=== PATIENT | female | born 1945 | race Caucasian/White ===

== ENCOUNTER 2020-12-24 13:22 | Emergency (ER) | payer MEDICARE, OTHER ==
[~2020-12-24] VITALS: Ht 157.5 cm; Wt 75.7 kg
[2020-12-24 14:00] VITALS: BP 142/86
[2020-12-24] MEDS ORDERED: ONDANSETRON PF 4 MG/2 ML VIAL. IVP ONE (14:15)
--- NOTE | 2020-12-24 14:47 | RAD ---
EXAM: Chest, 2 views. HISTORY: Cough. Shortness of breath. COMPARISON: None. FINDINGS: 2 views of the chest are obtained. There is no infiltrate, pleural effusion or pneumothorax . There are chronic appearing interstitial changes. The heart is normal in size. There are surgical c lips overlying the left thoracic inlet. IMPRESSION: No acute pulmonary finding. Chronic appearing interstitial changes. Electronically signed by: Mamie Yang MD (12/24/2020 2:45 PM) [id number]
[2020-12-24 14:54] LABS: BASO % 0 % (0-3); EOS # 0.1 x10^3/uL (0.0-0.7); EOS % 1 % (0-3); HEMATOCRIT 41.6 % (36.0-47.0); LYMPH # 0.5 x10^3/uL (1.0-4.8); LYMPH % 5 % (24-48); MEAN CORPUSCULAR HEMOGLOBIN 30 pg (25-35); MEAN CORPUSCULAR HGB CONC 34 g/dL (31-37); MEAN CORPUSCULAR VOLUME 88 fL (79-100); MONO # 0.6 x10^3/uL (0.0-1.1); MONO % 6 % (0-9); NEUT # 8.7 x10^3uL (1.8-7.7); NEUT % 88 % (31-73); PLATELET COUNT 242 x10^3/uL (140-400); RED BLOOD COUNT 4.71 x10^6/uL (3.50-5.40); RED CELL DISTRIBUTION WIDTH 13.6 % (11.5-14.5); WHITE BLOOD COUNT 9.9 x10^3/uL (4.0-11.0)
[2020-12-24 15:00] LABS: GFR 54.3; POTASSIUM 3.7 mmol/L (3.5-5.1)
[2020-12-24 15:06] LABS: ALBUMIN 3.7 g/dL (3.4-5.0); ALBUMIN/GLOBULIN RATIO 1.1 (1.0-1.7); TOTAL BILIRUBIN 0.7 mg/dL (0.2-1.0); TOTAL PROTEIN 7.2 g/dL (6.4-8.2)
--- NOTE | 2020-12-24 16:08 | EKG ---
[address] [address] Test Date: 2020-12-24 Test Time: 15:24:43 Pat Name: ARMAAN LA Department: Room: Gender: F Assembly Associate: ANJEL : 1945 Requested By: JUAN TATE Order Number: [id number] Reading MD: Measurements Intervals [place] Rate: 95 P: 1 NE: 182 QRS: 32 QRSD: 88 T: 43 QT: 350 QTc: 443 Interpretive Statements SINUS RHYTHM LOW LIMB LEAD VOLTAGE NO SPECIFIC ECG ABNORMALITIES RI6.02 No previous ECG available for comparison
[2020-12-24 16:16] LABS: BILIRUBIN,URINE NEG (NEG); CLARITY,URINE CLEAR; COLOR,URINE YELLOW; GLUCOSE,URINE NEG (NEG); NITRITE,URINE NEG (NEG); UROBILINOGEN,URINE 0.2 mg/dL (0.2 mg/dL)
[2020-12-24 16:20] LABS: BACTERIA,URINE FEW /HPF (0-FEW); SQUAMOUS EPITHELIAL CELL,UR OCC /LPF
[2020-12-24] MEDS ORDERED: ACETAMINOPHEN 325 MG TABLET PO ONE (16:30)
[2020-12-24] MEDS ORDERED: CEPH500C PO (17:36)
--- NOTE | 2020-12-24 17:37 | PHYS DOC ---
Past History Past Medical History: Hypothyroid (JUAN TATE APRN) Past Surgical History: No Surgical History (JUAN TATE APRN) Alcohol Use: None (JUAN TATE APRN) Adult General Chief Complaint Chief Complaint: FEMALE UROGENTIAL PROBLEMS HPI HPI Patient is a 75-year-old female presents to the emergency department complaining of burning and pressure with urination has been going on for the past week. Patient states she was seen at her NURSING UNIT MANAGER's office for a pessary change in which she uses for a prolapsed bladder was told she had a urinary tract infection and was started on a 7-day regimen of Macrobid. Patient states she finished yesterday, feels as if her urinary tract infection is not gone, patient is states she feels a little nauseated today. Patient also states that when she takes a deep breath it makes her cough once. Patient states she noticed she had a fever of 101.3 at home, states she does not like to take any medications for fevers as she likes for her body to take care of itself. Patient reports she takes Synthroid for thyroid problems. Patient reports her primary care physician is Dr. Whittaker. Patient denies any chest pains, shortness of breath, vomiting, or diarrhea. Patient denies any other physical complaints or physical concerns. (JUAN TATE APRN) Review of Systems Review of Systems 14 body systems of review of systems have been reviewed. See HPI for pertinent positives and negative responses, otherwise all other systems are negative, nonpertinent or noncontributory. (JUAN TATE APRN) Current Medications Current Medications Current Medications Medications (Trade) Dose Ordered Sig/Marco Antonio Start Time Stop Time Status Last Admin Dose Admin Acetaminophen (Tylenol) 650 mg 1X ONCE 12/24/20 16:30 12/24/20 16:45 DC 12/24/20 16:30 650 MG Ondansetron HCl (Zofran) 4 mg 1X ONCE 12/24/20 14:15 12/24/20 14:31 DC 12/24/20 14:37 4 MG (JUAN TATE APRN) Allergies Allergies Allergies Coded Allergies Type Severity Reaction Last Updated Verified No Known Drug Allergies 12/24/20 No (JUAN TATE APRN) Physical Exam Physical Exam Constitutional: Well developed, well nourished, no acute distress, non-toxic appearance. 75-year-old female no apparent distress. HENT: Normocephalic, atraumatic, bilateral external ears normal, oropharynx moist, no oral exudates, nose normal. Eyes: PERRLA, EOMI, conjunctiva normal, no discharge. Neck: Normal range of motion, no tenderness, supple, no stridor. Cardiovascular:Heart rate regular rhythm, no murmur, heart sounds S1-S2 to auscultation. Lungs & Thorax: Bilateral breath sounds clear to auscultation, no adventitious lung sounds appreciated. Abdomen: Bowel sounds normal, soft, no tenderness, no masses, no pulsatile masses. Skin: Warm, dry, no erythema, no rash. Back: No tenderness, no CVA tenderness. Extremities: No tenderness, no cyanosis, no clubbing, ROM intact, no edema. Neurologic: Alert and oriented X 3, normal motor function, normal sensory funct ion, no focal deficits noted. Psychologic: Affect normal, judgement normal, mood normal. (JUAN TATE APRN) Current Patient Data Vital Signs Vital Signs Date Time Temp Pulse Resp B/P (MAP) Pulse Ox O2 Delivery O2 Flow Rate FiO2 12/24/20 16:00 100.0 12/24/20 14:00 76 22 142/86 (104) 94 Room Air Lab Results Laboratory Tests Test 12/24/20 14:21 12/24/20 15:37 White Blood Count 9.9 x10^3/uL (4.0-11.0) Red Blood Count 4.71 x10^6/uL (3.50-5.40) Hemoglobin 14.0 g/dL (12.0-15.5) Hematocrit 41.6 % (36.0-47.0) Mean Corpuscular Volume 88 fL (79-100) Mean Corpuscular Hemoglobin 30 pg (25-35) Mean Corpuscular Hemoglobin Concent 34 g/dL (31-37) Red Cell Distribution Width 13.6 % (11.5-14.5) Platelet Count 242 x10^3/uL (140-400) Neutrophils (%) (Auto) 88 % (31-73) H Lymphocytes (%) (Auto) 5 % (24-48) L Monocytes (%) (Auto) 6 % (0-9) Eosinophils (%) (Auto) 1 % (0-3) Basophils (%) (Auto) 0 % (0-3) Neutrophils # (Auto) 8.7 x10^3uL (1.8-7.7) H Lymphocytes # (Auto) 0.5 x10^3/uL (1.0-4.8) L Monocytes # (Auto) 0.6 x10^3/uL (0.0-1.1) Eosinophils # (Auto) 0.1 x10^3/uL (0.0-0.7) Basophils # (Auto) 0.0 x10^3/uL (0.0-0.2) Sodium Level 141 mmol/L (136-145) Potassium Level 3.7 mmol/L (3.5-5.1) Chloride Level 103 mmol/L (98-107) Carbon Dioxide Level 28 mmol/L (21-32) Anion Gap 10 (6-14) Blood Urea Nitrogen 17 mg/dL (7-20) Creatinine 1.0 mg/dL (0.6-1.0) Estimated GFR (Cockcroft-Gault) 54.3 BUN/Creatinine Ratio 17 (6-20) Glucose Level 139 mg/dL (70-99) H Calcium Level 9.0 mg/dL (8.5-10.1) Total Bilirubin 0.7 mg/dL (0.2-1.0) Aspartate Amino Transferase (AST) 21 U/L (15-37) Alanine Aminotransferase (ALT) 31 U/L (14-59) Alkaline Phosphatase 107 U/L (46-116) Troponin I Quantitative < 0.017 ng/mL (0-0.055) Total Protein 7.2 g/dL (6.4-8.2) Albumin 3.7 g/dL (3.4-5.0) Albumin/Globulin Ratio 1.1 (1.0-1.7) Urine Collection Type Unknown Urine Color Yellow Urine Clarity Clear Urine pH 6.0 Urine Specific [place] 1.025 Urine Protein Neg (NEG-TRACE) Urine Glucose (UA) Neg mg/dL (NEG) Urine Ketones (Stick) Neg mg/dL (NEG) Urine Blood Mod (NEG) Urine Nitrite Neg (NEG) Urine Bilirubin Neg (NEG) Urine Urobilinogen Dipstick 0.2 mg/dL (0.2 mg/dL) Urine Leukocyte Esterase Small (NEG) Urine RBC 3-5 /HPF (0-2) Urine WBC 1-4 /HPF (0-4) Urine Squamous Epithelial Cells Occ /LPF Urine Bacteria Few /HPF (0-FEW) Urine Mucus Slight /LPF (JUAN TATE APRN) EKG EKG EKG performed at 1524 by house respiratory therapy staff shows a normal sinus rhythm without ectopy heart rate 95 bpm, [place] interval 0.182, QTc interval 0.443, no acute STEMI, no ACS, no acute ischemia appreciated, EKG interpreted by ED attending physician Dr. Henderson. (JUAN TATE APRN) Radiology/Procedures Radiology/Procedures PATIENT: ARMAAN LA ACCOUNT: [id number] : 1945 LOCATION: ER AGE: 75 SEX: F EXAM STATUS: REG ER ORD. PHYSICIAN: JUAN TATE APRN REASON: COUGH WITH SHORTNESS OF BREATH PROCEDURE: CHEST PA & LATERAL EXAM: Chest, 2 views. HISTORY: Cough. Shortness of breath. COMPARISON: None. FINDINGS: 2 views of the chest are obtained. There is no infiltrate, pleural effusion or pneumothorax. There are chronic appearing interstitial changes. The heart is normal in size. There are surgical clips overlying the left thoracic inlet. IMPRESSION: No acute pulmonary finding. Chronic appearing interstitial changes. Electronically signed by: Mamie Avila MD (12/24/2020 2:45 PM) [id number] DICTATED AND SIGNED BY: MAMIE AVILA MD DATE: 12/24/20 1445 CC: JUAN TATE APRN; MAMIE WHITTAKER MD ~MTH0 0 (JUAN TATE APRN) Heart Score C/O Chest Pain: No HEART Score for Chest Pain: HEART Score for Chest Pain Response (Comments) Value History Slighlty/Non-Suspicious 0 ECG Normal 0 Age > 65 2 Risk Factors No Risk Factors 0 Troponin < Normal Limit 0 Total 2 Risk Factors: Risk Factors: DM, Current or recent (<one month) smoker, HTN, HLP, family history of CAD, obesity. Risk Scores: Risk Factors: DM, Current or recent (<one month) smoker, HTN, HLP, family history of CAD, obesity. (JUAN TATE APRN) Course & Med Decision Making Course & Med Decision Making Pertinent Labs and Imaging studies reviewed. (See chart for details) 75-year-old female, vital signs reviewed, presents emergency department chief complaint of ongoing UTI symptoms after 7-day regimen of Macrobid. Patient also complained of a cough when she takes a deep breath. However patient does not have chest pain or shortness of breath. Physical examination was unremarkable, however related to patient's age and history will order EKG and chest x-ray related to symptom of cough when taking a deep breath. Will also order CBC, CMP, troponin I, urinalysis assay. Patient states she feels as if she has a fever, bedside temperature 100.0 oral temp, gave 650 mg p.o. Tylenol. Upon reexamination of the patient, patient states she is symptom-free. Bedside temperature 98.0 oral temp. Chest x-ray negative for acute process, EKG unremarkable, patient's serum lab work unremarkable, troponin I was negative, patient's urine showed hematuria with leukocyte esterase, most likely ongoing UTI after Macrobid regimen, discuss ed findings with patient, will start patient on 500 mg Keflex twice daily x7 days. Strict follow-up with Dr. Whittaker for reevaluation of ongoing UTI symptoms, return to ER precautions or concerns. Will give first dose of Keflex in ED prior to discharge. Patient states she has had her COVID-19 vaccinations completed, patient states her is worried that she might have the Covid virus anyways because he has heard that people can still get the Covid virus after being vaccinated. Patient states that she better get a Covid test while she is here. Covid 19 virus unlikely however related to patient's fears and current world pandemic will order COVID-19 testing. Patient gave verbal understanding of discharge home instructions, follow-up with Dr. Whittaker soon, return to ER precautions and concerns, patient states she feels much better try to go home patient was discharged home without incident. (JUAN TATE APRN) Dragon Disclaimer Dragon Disclaimer This electronic medical record was generated, in whole or in part, using a voice recognition dictation system. (JUAN TATE APRN) Attending Co-Sign The patient was seen and interviewed as well as examined at the bedside. The chart was reviewed. The case was discussed. Agree with the plan of care. (JOSH HENDERSON DO) Departure Departure: Impression: Primary Impression: UTI (urinary tract infection) Disposition: 01 HOME / SELF CARE / HOMELESS Condition: GOOD Referrals: MAMIE WHITTAKER MD (PCP) Additional Instructions: I am starting you on antibiotic for urinary tract infection called Keflex, please take as directed until complete. Please follow-up with your primary care Dr. Mamie Whittaker for a reexamination of your reoccurring urinary tract infection symptoms. Please return to the emergency department immediately for worsening symptoms or other concerns. EMERGENCY DEPARTMENT GENERAL DISCHARGE INSTRUCTIONS Thank you for coming to [facility] (ED) today and trusting us with you care. We trust that you had a positivie experience in our Emergency Department. If you wish to speak to the department management, you may call the director at [phone]. YOUR FOLLOW UP INSTRUCTIONS ARE FOLLOWS: 1. Do you have a private Doctor? If you do not have a private doctor, please ask for a resource list of physicians or clinics that may be able to assist you with follow up care. 2. The Emergency Physician has interpreted your x-rays. The X-Ray specialist will also review them. If there is a change in the findings, you will be notified in 48 hours when at all possible. 3. A lab test or culture has been done, your results will be reviewed and you will be notified if you need a change in treatment. ADDITIONAL INSTRUCTIONS AND INFORMATION: 1. Your care today has been supervised by a physician who is specially trained in emergency care. Many problems require more than one evaluation for a complete diagnosis and treatment. We recommend that you schedule your follow up appointment as recommended to ensure complete treatment of you illness or injury. If you are unable to obtain follow up care and continue to have a problem, or if your condition worsens, we recommend that you return to the ED. 2. We are not able to safely determine your condition over the phone nor are we able to give sound medical advice over the phone. For these safety reasons, if you call for medical advice we will ask you to come to the ED for further evaluation. 3. If you have any questions regarding these discharge instructions please call the ED at [phone]. SAFETY INFORMATION: In the interest of safety, wellness, and injury prevention; we encourage you to wear your sealbelt, if you smoke; quite smoking, and we encourage family to use a protective helmet for bicycling and other sporting events that present an increased risk for head injury. IF YOUR SYMPTOMS WORSEN OR NEW SYMPTOMS DEVELOP, OR YOU HAVE CONCERNS ABOUT YOUR CONDITION; OR IF YOUR CONDITION WORSENS WHILE YOU ARE WAITING FOR YOUR FOLLOW UP APPOINTMENT; EITHER CONTACT YOUR PRIMARY CARE DOCTOR, THE PHYSICIAN WHOSE NAME AND NUMBER YOU WERE GIVEN, OR RETURN TO THE ED IMMEDIATELY. Scripts Cephalexin (CEPHALEXIN) 500 Mg Capsule 1 CAP PO BID for UTI for 7 Days, #14 CAP 0 Refills Prov: JUAN TATE APRN 12/24/20 Problem Qualifiers Primary Impression: UTI (urinary tract infection) Urinary tract infection type: site unspecified Hematuria presence: with hematuria Qualified Codes: N39.0 - Urinary tract infection, site not specified; R31.9 - Hematuria, unspecified JUAN TATE APRN Dec 24, 2020 17:37 JOSH HENDERSON DO Dec 25, 2020 09:20
[2020-12-24] MEDS ORDERED: CEPHALEXIN 250 MG CAPSULE ONE (17:52)
[2020-12-24] MEDS ORDERED: CEPHALEXIN 250 MG CAPSULE PO ONE (18:00)
== END 2020-12-24 18:03 | disposition home or self-care (01) ==
LOC: ER 13:22
DX: N39.0 Urinary tract infection, site not specified (principal); Z20.822 Contact with and (suspected) exposure to COVID-19
CPT/HCPCS: 36415; 71046; 80053; 81001; 84484; 85025; 87086; 93005; 96374; 99285; C9803; J2405; U0003